=== PATIENT | female | born 1985 | race Caucasian/White ===

== ENCOUNTER 2016-08-19 10:18 | Emergency (ER) | payer MEDICAID ==
[2016-08-19 10:33] VITALS: BMI 21.2
[2016-08-19 10:39] VITALS: TEMP 98
--- NOTE | 2016-08-19 11:25 | EDPRACDOC ---
- General Information Chief Complaint: Toothache Stated Complaint: ABSCESS TOOTH Time Seen by Provider: 08/19/16 10:29 Information Source: Patient Mode Of Arrival: Car Home Medications: Home Medications Alprazolam [Xanax] 1 mg PO Q8H PRN 08/19/16 Hydrocodone Bit/Acetaminophen [Hydrocodon-Acetaminophen 5-325] 1 tab PO Q6H PRN #10 tab 08/19/16 Penicillin V Potassium 500 mg PO TID #30 tablet 08/19/16 Allergies/Adverse Reactions: Allergies Allergy/AdvReac Type Severity Reaction Status Date / Time No Known Allergies Allergy Verified 08/19/16 10:31 - History of Present Illness Onset: 1 week HPI: Patient reports left upper dental pain for more than a week, states really started bothering her last night. Has not called for dentist appt. Denies fever , chills, ear pain or sore throat. Denies chance of . Reported Tooth Problem: Yes Pain Severity: Reports: Moderate Relevant History of: Reports: None Modifying Factors: improves with: None Associated Signs and Symptoms: Reports: None ED Past Medical History - History Reviewed Yes Nurses notes reviewed and agree except as marked No Past Medical History: Yes Patient has no past medical history - Patient Medical History Psychological History: Denies: Depression Surgical History: Reports: No Significant History. Denies: Hysterectomy - Social Medical History Smoking Status: Heavy tobacco smoker (5 or more cigarettes/day or daily pipe/ cigar) ETOH: None Substance Abuse: None Lives In: Home EDM Review of Systems - Review of Systems ROS Negative Except as Marked: Yes All systems reviewed and were negative except as marked Constitutional: No Symptoms Reported Eyes: No Symptoms Reported Ears: No Symptoms Reported Throat: No Symptoms Reported Nose: No Symptoms Reported Mouth: Pain, Tooth Pain, Poor Dentition, Inflamed gums Respiratory: No Symptoms Reported Cardiovascular: No Symptoms Reported Genitourinary: No Symptoms Reported Neurological: No Symptoms Reported - Physical Exam Constitutional: Alert (Awake), No apparent distress Oriented to: Time, Person, Place Last recorded Vital Signs: Last Vital Signs Temp 98 F 08/19/16 10:31 Pulse 78 08/19/16 10:31 Resp 18 08/19/16 10:31 BP 129/76 08/19/16 10:31 Pulse Ox 97 08/19/16 10:31 Oxygen Pulse Oxygen Saturation 97 O2 Device Room Air Oxygen Flow Rate Fraction of Inspired Oxygen ( FIO2) - HEENT Head: Normal ( normocephalic) Oropharynx: Normal (Pharynx:Moist without exudate,Gums-no swelling) Tympanic Membrane: Normal ENT EAC: Normal TMJ: Normal Nose: No Symptoms Reported (septum midline) Neck: Normal (FROM, trachea at midline) - Respiratory/Cardiovascular Respiratory: Normal - CTA (BBS clear to auscultation without adventitious sounds ) Cardiovascular: Normal (RRR without murmur, gallop or rub) - GI Auscultation: Normal (NABS) Tenderness: Non tender - Musculoskeletal Back: Normal (Non-Tender) Extremities: Normal (Normal tone, Pulses 2+ No cyanosis or edema, FROM) - Integumentary Skin: Normal, Warm, Dry Lymphatics: Normal (no adenopathy) - Neurologic Memory Impaired: Normal Motor Function: Normal (Normal tone, Pulses 2+ No cyanosis or edema, FROM) Mood Description: Normal ED Tooth Problem Exam - HEENT Face: Normal Teeth: Left: Molar-1 Upper, Molar-2 Upper Gingiva: Swelling, Red. negative: Pointing, Draining, Necrotizing Palate: Normal Mouth Range of Motion: Normal Neck: Normal Decision Time to Discharge: 11:27 - Departure Disposition: Home Condition: Good Final Diagnosis: Dental abscess (peridontal), Toothache Instructions: Dental Abscess (ED), Dental Caries (ED) Education/Counseling Given To: Patient Education/Counseling Given Regarding: Diagnosis, Treatment, Prognosis, Follow Up Referrals: None,No Provider [Primary Care Provider] - One Week [facility] [Provider Group] - One Week Prescriptions: Hydrocodone Bit/Acetaminophen [Hydrocodon-Acetaminophen 5-325] 1 tab PO Q6H PRN #10 tab PRN Reason: Pain Penicillin V Potassium 500 mg PO TID #30 tablet Additional Instructions: Please followup with PCP in 1-2days. Return to ED if symptoms worsen/change or concerns arise. You must followup with a dentist for definitive treatment.
[2016-08-19 11:39] VITALS: BP 126/74; PULSE 74
== END 2016-08-19 11:37 | disposition home or self-care (01) ==
LOC: ED 10:18
DX: K04.7 Periapical abscess without sinus (principal)
CPT/HCPCS: 99282